=== PATIENT | female | born 2005 | race Caucasian/White ===

== ENCOUNTER 2025-03-22 17:43 | Inpatient (IN) | payer OTHER ==
[2025-03-22 18:11] VITALS: BMI 32.2
[2025-03-22 18:49] LABS: Protein, Urine Random Quant 20.0 mg/dL (1-14)
[2025-03-22 19:00] LABS: ALT (SGPT) 10 U/L (Less than 34); AST (SGOT) 20 U/L (11-34); Albumin 3.5 g/dL (3.1-4.5); Alkaline Phosphatase 120 U/L (40-100); Anion Gap 13 mmol/L (10-20); BUN (Urea Nitrogen) 7 mg/dL (7.0-18.7); Bilirubin, Total 0.7 mg/dL (0.3-1.2); Calc. Creatinine Clearance 208 mL/min (70-130); Calcium 9.5 mg/dL (7.8-10.44); Carbon Dioxide 21 mmol/L (22-29); Chloride 107 mmol/L (98-107); Globulin 3.8 g/dL (2.4-3.5); Glucose 116 mg/dL (70-105); Potassium 3.9 mmol/L (3.5-5.1); Sodium 137 mmol/L (136-145)
[2025-03-22 19:16] LABS: Hematocrit 39.5 % (34.9-44.5); Hemoglobin 13.4 g/dL (12.0-15.5); Mean Corpuscular Hemoglobin 27.5 pg (27.0-33.0); Mean Corpuscular Volume 81.1 fL (81.6-98.3); Platelet Count 209 10x3/uL (150-450); Red Blood Cell (RBC) Count 4.87 10x6/uL (3.90-5.03); White Blood Cell (WBC) Count 12.88 10x3/uL (3.5-10.5)
[2025-03-22 19:33] LABS: MDiff Complete? YES; Platelet Adequacy Comment Appears Adequate; RBC Morphology Within Normal Limits
[2025-03-22] MEDS ORDERED: Ondansetron PF 4 MG/2 ML Vial IVP PRN (20:06)
[2025-03-22] MEDS ORDERED: Carboprost 250 MCG/ML AMP IM PRN (20:06)
[2025-03-22] MEDS ORDERED: hydrALAZINE 20 MG/ML VIAL SLOW IVP PRN ×3 (20:06)
[2025-03-22] MEDS ORDERED: Lidocaine 1% (PF) 30 ML VIAL SC PRN (20:06)
[2025-03-22] MEDS ORDERED: Methylergonovine 0.2 MG/ML VIAL IM PRN (20:06)
[2025-03-22] MEDS ORDERED: Diphenoxylate HCl/Atropine Tablet PO PRN ×2 (20:06)
[2025-03-22] MEDS ORDERED: Ibuprofen 800 MG TAB PO PRN (20:06)
[2025-03-22] MEDS ORDERED: Calcium Gluc 4.6 MEQ/10 ML (100 MG/ML) SLOW IVP PRN (20:06)
[2025-03-22] MEDS ORDERED: Tranexamic Acid 1,000 MG/10 ML VIAL IVP PRN (20:06)
[2025-03-22] MEDS ORDERED: Oxytocin 30 units/NS 500 ML 500 ML IV SCH (20:15)
[2025-03-22 21:45] LABS: Syphilis Antibody Index 0.07 S/CO (<1.00 Non-Reactive)
[2025-03-22 21:47] LABS: Hep B Surf Ag - L&D Non-Reactive S/CO (NonReactive)
[2025-03-23] MEDS ORDERED: Acetaminophen 500 MG TAB PO PRN (07:54)
[2025-03-23] MEDS: fentaNYL/Ropivacaine Epidural 100 ML ONE (10:45)
[2025-03-23] MEDS ORDERED: Acetaminophen 325 MG TAB PO PRN (11:02)
[2025-03-23] MEDS ORDERED: diphenhydrAMINE 50 MG/ML VIAL IVP PRN (11:02)
[2025-03-23] MEDS ORDERED: Ondansetron PF 4 MG/2 ML Vial IVP PRN ×2 (11:02→13:24)
[2025-03-23] MEDS ORDERED: fentaNYL 2 mcg/Ropivacaine 0.2% Epidural 100 ML CADD EPIDURAL SCH (11:15)
[2025-03-23] MEDS ORDERED: Communication Order-Pharmacy FS SCH (11:15)
[2025-03-23] MEDS ORDERED: Bupivacaine 0.25% HCL 30 ML VIAL ONE (13:00)
[2025-03-23] MEDS ORDERED: Milk Of Magnesia 30 ML UDCUP PO PRN (13:24)
[2025-03-23] MEDS ORDERED: Methylergonovine 0.2 MG/ML VIAL IM PRN (13:24)
[2025-03-23] MEDS ORDERED: diphenhydrAMINE 25 MG CAP PO PRN (13:24)
[2025-03-23] MEDS ORDERED: Preparation H Ointment 28 GM TUBE PR PRN (13:24)
[2025-03-23] MEDS ORDERED: Benzocaine-Menthol 82.5 ML CAN TOP PRN (13:24)
[2025-03-23] MEDS ORDERED: Bisacodyl 10 MG SUPP PR PRN (13:24)
[2025-03-23] MEDS ORDERED: hydrALAZINE 20 MG/ML VIAL SLOW IVP PRN (13:24)
[2025-03-23] MEDS ORDERED: Oxytocin 30 units/NS 500 ML 500 ML IV SCH (13:30)
[2025-03-23 13:35] LABS: Analyzer IN Cardio CS NICU
[2025-03-23] MEDS: Oxytocin 30 units/NS 500 ML 500 ML IV SCH (13:35)
[2025-03-23 13:36] LABS: Analyzer IN Cardio CS NICU; RapidComm Collect By CBN; pH (Cord, venous) 7.204 (7.250-7.350)
[2025-03-23] MEDS: Boostrix 0.5 ML (Tdap) VIAL (>/=7 yrs of age) IM ONE (17:01)
[2025-03-23] MEDS: Ferrous Sulfate 325 MG TAB PO SCH (17:01)
[2025-03-23] MEDS: Ibuprofen 800 MG TAB PO SCH (17:01)
[2025-03-23] MEDS: Hepatitis B Vaccine 10 MCG/0.5 ML SYR ONE (17:02)
[2025-03-23] MEDS: HYDROcodone/Acetaminophen 5/325 mg Tablet PO PRN (18:09)
[2025-03-25 08:24] VITALS: BP 137/95; TEMP 98.3
== END 2025-03-25 11:40 | disposition home or self-care (01) | DRG 806 ==
LOC: CSHLD/OP 17:43 → CSHLD 21:22 → CSHPP 03-23 16:18
PROVIDERS: ADMIT Family Medicine; ATTEND Family Medicine
PROC: 10D07Z6 Extraction of Products of Conception, Vacuum, Via Natural or Artificial Opening (ICD-10-PCS; principal; 2025-03-24)
PROC: 0HQ9XZZ Repair Perineum Skin, External Approach (ICD-10-PCS; 2025-03-24)
PROC: 0UQMXZZ Repair Vulva, External Approach (ICD-10-PCS; 2025-03-24)
DX: O14.04 Mild to moderate pre-eclampsia, complicating childbirth (principal); B01.9 Varicella without complication; Z37.0 Single live birth; O98.52 Other viral diseases complicating childbirth; Z3A.38 38 weeks gestation of pregnancy; O70.0 First degree perineal laceration during delivery; O71.82 Other specified trauma to perineum and vulva
CPT/HCPCS: 36415; 51702; 80053; 82570; 82805; 84156; 85025; 85461; 86780; 86850; 86900; 86901; 87340; 90384; 96372; 99285; J0595; J0665; J2590; J7120